=== PATIENT | female | born 1990 | race Caucasian/White ===

== ENCOUNTER → 2016-08-21 11:23 | Outpatient (CLI) | payer MEDICAID ==
[2015-10-11 11:31] VITALS: BMI 26.2
[~2016-08-21 11:23] MED LIST: DEMEROL50 MG PO; IBUPROFEN600 MG PO; PERCOCET 5-3251 TAB PO; PHENERGAN25 M1 PO
== END | disposition home or self-care (01) ==
LOC: D.LDO 11:23
DX: O26.899 Other specified pregnancy related conditions, unspecified trimester (principal)

== ENCOUNTER → 2016-08-28 09:10 | Outpatient (CLI) | payer MEDICAID ==
[2015-10-11 11:31] VITALS: BMI 26.2
== END | disposition home or self-care (01) ==
LOC: D.LDO 09:10
DX: O36.8990 Maternal care for other specified fetal problems, unspecified trimester, not applicable or unspecified (principal)

== ENCOUNTER → 2016-09-02 11:10 | Outpatient (CLI) | payer MEDICAID ==
[2015-10-11 11:31] VITALS: BMI 26.2
== END | disposition home or self-care (01) ==
LOC: D.LDO 11:10
DX: O26.893 Other specified pregnancy related conditions, third trimester (principal); Z3A.33 33 weeks gestation of pregnancy

== ENCOUNTER → 2016-09-05 08:47 | Outpatient (CLI) | payer MEDICAID ==
[2015-10-11 11:31] VITALS: BMI 26.2
== END | disposition home or self-care (01) ==
LOC: D.LDO 08:47
DX: O26.893 Other specified pregnancy related conditions, third trimester (principal); Z3A.34 34 weeks gestation of pregnancy

== ENCOUNTER → 2016-09-12 12:35 | Outpatient (CLI) | payer MEDICAID ==
[2015-10-11 11:31] VITALS: BMI 26.2
== END | disposition home or self-care (01) ==
LOC: D.LDO 12:35
DX: O26.893 Other specified pregnancy related conditions, third trimester (principal); Z3A.35 35 weeks gestation of pregnancy

== ENCOUNTER → 2016-09-19 10:44 | Outpatient (CLI) | payer MEDICAID ==
[2015-10-11 11:31] VITALS: BMI 26.2
== END | disposition home or self-care (01) ==
LOC: D.LDO 10:44
DX: O26.893 Other specified pregnancy related conditions, third trimester (principal); Z3A.36 36 weeks gestation of pregnancy

== ENCOUNTER → 2016-09-23 10:35 | Outpatient (CLI) | payer MEDICAID ==
[2015-10-11 11:31] VITALS: BMI 26.2
== END | disposition home or self-care (01) ==
LOC: D.LDO 10:35
DX: O26.893 Other specified pregnancy related conditions, third trimester (principal)

== ENCOUNTER → 2016-09-26 10:46 | Outpatient (CLI) | payer MEDICAID ==
[2015-10-11 11:31] VITALS: BMI 26.2
== END | disposition home or self-care (01) ==
LOC: D.LDO 10:46
DX: O26.893 Other specified pregnancy related conditions, third trimester (principal); Z3A.37 37 weeks gestation of pregnancy

== ENCOUNTER → 2016-09-30 09:10 | Outpatient (CLI) | payer MEDICAID ==
[2015-10-11 11:31] VITALS: BMI 26.2
== END | disposition home or self-care (01) ==
LOC: D.LDO 09:10
DX: O26.893 Other specified pregnancy related conditions, third trimester (principal); Z3A.37 37 weeks gestation of pregnancy

== ENCOUNTER → 2016-10-03 12:31 | Outpatient (CLI) | payer MEDICAID ==
[2015-10-11 11:31] VITALS: BMI 26.2
== END | disposition home or self-care (01) ==
LOC: D.LDO 12:31
DX: Z34.93 Encounter for supervision of normal pregnancy, unspecified, third trimester (principal); Z3A.38 38 weeks gestation of pregnancy

== ENCOUNTER → 2016-10-10 10:20 | Outpatient (CLI) | payer MEDICAID ==
[2015-10-11 11:31] VITALS: BMI 26.2
== END | disposition home or self-care (01) ==
LOC: D.LDO 10:20
DX: O26.893 Other specified pregnancy related conditions, third trimester (principal); Z3A.39 39 weeks gestation of pregnancy

== ENCOUNTER → 2016-10-14 14:41 | Outpatient (CLI) | payer MEDICAID ==
[2015-10-11 11:31] VITALS: BMI 26.2
== END | disposition home or self-care (01) ==
LOC: D.LDO 14:41
DX: O26.893 Other specified pregnancy related conditions, third trimester (principal); Z3A.39 39 weeks gestation of pregnancy

== ENCOUNTER → 2016-10-18 11:40 | Outpatient (CLI) | payer MEDICAID ==
[2015-10-11 11:31] VITALS: BMI 26.2
== END | disposition home or self-care (01) ==
LOC: D.LDO 11:40
DX: O26.93 Pregnancy related conditions, unspecified, third trimester (principal); Z3A.40 40 weeks gestation of pregnancy

== ENCOUNTER → 2016-10-20 12:45 | Outpatient (CLI) | payer MEDICAID ==
[2015-10-11 11:31] VITALS: BMI 26.2
== END | disposition home or self-care (01) ==
LOC: D.LDO 12:45
DX: O26.893 Other specified pregnancy related conditions, third trimester (principal); Z3A.40 40 weeks gestation of pregnancy

== ENCOUNTER 2016-10-21 04:39 | Inpatient (IN) | payer MEDICAID ==
[~2016-10-21] VITALS: Ht 160 cm; Wt 99.8 kg
[2016-10-21 05:11] VITALS: BP 122/74; Ht 160 cm; Wt 99.8 kg
[2016-10-21 06:06] LABS: APPEARANCE CLOUDY (CLEAR); COLOR YELLOW (YELLOW); LEUKOCYTE ESTERASE 1+ (NEGATIVE); NITRITE NEGATIVE (NEGATIVE); PROTEIN TRACE mg/dL (NEGATIVE)
[2016-10-21 06:07] LABS: BILIRUBIN NEGATIVE (NEGATIVE); GLUCOSE NEGATIVE (NEGATIVE); KETONE NEGATIVE (NEGATIVE); UROBILINOGEN NORMAL (NORMAL)
[2016-10-21 06:09] LABS: BACTERIA MANY /hpf (NONE SEEN); RED CELLS - URINE 0-5 /hpf (0-5)
[2016-10-21 06:20] LABS: HEMATOCRIT 34.1 % (36.0-48.0); HEMOGLOBIN 10.5 g/dL (12-16); MCH 24.4 pg (26.0-34.0); MCHC 30.8 g/dL (31.0-37.0); MCV 79.1 fL (80.0-100.0); RBC 4.31 10x6/uL (4.00-5.40); RDW 16.9 % (11.5-14.5); WBC 10.7 10x3/uL (4.8-10.8)
[2016-10-21 06:43] LABS: UDS - AMPHET NEGATIVE QUAL (NEGATIVE); UDS - BARB NEGATIVE QUAL (NEGATIVE); UDS - BENZO NEGATIVE QUAL (NEGATIVE); UDS - COCAINE NEGATIVE QUAL (NEGATIVE); UDS - METH NEGATIVE QUAL (NEGATIVE); UDS - OPIATE NEGATIVE QUAL (NEGATIVE); UDS - PCP NEGATIVE QUAL (NEGATIVE); UDS - THC NEGATIVE QUAL (NEGATIVE)
--- NOTE | 2016-10-21 23:10 | NUR ---
PT MOVED TO REGULAR BED FOR CONT. PP CARE. PT DENIES PAIN OR NEEDS AT THIS TIME. WILL CONT. TO MONITOR.
--- NOTE | 2016-10-22 00:23 | NUR ---
DERMAPLAST, EPIFOAM, TUCKS, AND MOTRIN 600MG X1 TAB PROVIDED FOR EH CARE AND PAIN RATED 4/10 IN ABD AND PERINEUM. PT UP TO VOID AT THIS TIME WITHOUT ASSISTANCE. PT DENIES FURTHER NEEDS. WILL CONT TO MONITOR. BED LOW, WHEELS LOCKED, CL IN REACH, SIDE RAILS UP X2.
--- NOTE | 2016-10-22 01:10 | NUR ---
PAIN REASSESSMENT COMPLETE. PT REPORTS PAIN 3/10 IN ABD AND PERINEUM. PT DENIES FURTHER NEEDS. FOB SLEEPING ON BEDSIDE COUCH.
--- NOTE | 2016-10-22 02:20 | NUR ---
INFANT TRANSPORTED TO ROOM VIA OPEN CRIB. BANDS VERIFIED PER PROTOCOL. LEFT IN OPEN CRIB AT BEDSIDE PER PT REQUEST. PT DENIES PAIN OR NEEDS AT THIS TIME.
--- NOTE | 2016-10-22 04:55 | NUR ---
RN CALLED TO PT BS. PT REQUESTS ADDITIONAL GOWN AND PANTIES, PROVIDED TO PT AT THIS TIME. PT DENIES ANY FURTHER NEEDS AT THIS TIME. BED IN LOW POSITION, SIDE RAILS UP TIMES 2, CALL LIGHT AND PHONE IN REACH. SO REMAINS AT PT BS FOR SUPPORT AND ASSISTANCE. REMAINS AT PT BS FOR COUPLET CARE. WILL CONT TO MONITOR PT STATUS.
[2016-10-22 07:27] LABS: RAPID PLASMA REAGIN Non Reactive (Non Reactive)
[2016-10-22 07:30] VITALS: BP 118/72
--- NOTE | 2016-10-22 07:30 | NUR ---
Pt is awake, sitting up in bed holding infant, denies pain or discomfort at this time. fundus firm at u/u with light bleeding noted, Pt denies any clots with voids. Saline lock to right forearm that is patent, pt questions when this can be removed and states understanding that labs will be done. denies any questions or concerns at this time. Side rails up x 2 with call light in reach.
--- NOTE | 2016-10-22 09:31 | NUR ---
Motrin given as charted on emar for complaint of cramping. rates at 3/10. Infant in crib at bedside. Pt denies any other needs at this time.
[2016-10-22 10:33] LABS: HEMATOCRIT 28.8 % (36.0-48.0); HEMOGLOBIN 8.9 g/dL (12-16); MCH 24.7 pg (26.0-34.0); MCHC 30.9 g/dL (31.0-37.0); MCV 79.8 fL (80.0-100.0); RBC 3.61 10x6/uL (4.00-5.40); RDW 17.2 % (11.5-14.5)
--- NOTE | 2016-10-22 10:39 | NUR ---
Shaneka Schmidt [birth year] S: Patient states she breastfeed baby yesterday for a few minutes, last night, she was so tired, she just gave baby a bottle. States she is a little nervous about , really don't know much about it. Baby has been spitting up formula a lot after every feeding, so she hasn't tried nursing him. States a nurse came in earlier and gave her more clothes for baby. O: Patient sitting up in bed holding , family in room. Congratulated on delivery, takes time and patience in the beginning. Explained breastmilk composition, your colostrum is so beneficial to baby because it contains antibodies that help build baby immune system. Every day your colostrum will increase in volume to meet needs. Breast milk is easier for infant to digest, so infant tends to eat more often. It's normal for a breastfed baby to eat every 1 to 2 hours. Explained and provided handout of feeding cues. Breastfed babies should feed on demand, when showing feeding cues. The more baby is placed to the breast; this will help with establishing your milk supply. If baby is given more formula verses breastmilk, your body will get the indicating that the breastmilk isn't needed, and will cut back in producing. Placing baby to the breast is very important when trying to establish your supply. When starting a feeding, make sure baby is turned tummy to tummy, nose opposite of nipple, gently support infant head, and allow to self-latch. If you need help with latching, please let us know, so we can help you. shouldn't hurt, sensitivity is normal, pain isn't. Baby should have some of the darker area around your nipple in his mouth when nursing, not just nipple only. When you haven't breastfed before, it can seem scary, but it's normal to feel overwhelmed at first, all parents feel this way at some point. Encouraged to try latching baby to the breast for next feeding, ask for help as needed. Provided handouts and explained on feeding cues, skin to skin, positions for , starting a feeding, engorgement, and hand expression. Asked if any questions or concerns, patient declined, states she will try nursing at next feeding. A: Patient states she is nervous about , first baby. P: Latch infant to the breast for feedings. Beatriz Wong, CLC
[2016-10-22 10:49] LABS: WBC 14.5 10x3/uL (4.8-10.8)
--- NOTE | 2016-10-22 11:15 | NUR ---
Saline lock removed with cath intact. Pt up to shower, bed linens changed at this time. Pt mother remains in room with in crib.
--- NOTE | 2016-10-22 12:45 | NUR ---
large ice water provided per pt request, denies pain or discomfort and has no other needs at this time.
--- NOTE | 2016-10-22 15:20 | NUR ---
PT dress in her clothing, sitting up in bed visiting with friends/family. Infant in room. Large cup of ice with sprite provided per her request. Rates pain at 0/10.
--- NOTE | 2016-10-22 16:45 | NUR ---
Denies pain or discomfort at this time. Transferred to room 1274, orient to room without any questions. infant remains in crib at bedside. Pt denies any needs
--- NOTE | 2016-10-22 17:45 | NUR ---
Denies pain or discomfort, no needs voiced. Infant in crib at bedside.
--- NOTE | 2016-10-22 19:12 | NUR ---
REPORT REC'D FROM Meg WEEKS RN. RN RESUMING CARE. RN TO ROOM, PT TALKING ON PHONE AT THIS TIME. WILL CHECK BACK IN ON PT. BED IN LOW POSITION WITH UPPER SIDE RAILS RAISED X2. CL AND PHONE WITHIN REACH.
--- NOTE | 2016-10-22 19:42 | NUR ---
PT SITTING ON EDGE OF BED CONVERSING WITH VISITORS. VISITOR HOLDING INFANT AT THIS TIME. DENIES PAIN AND ADDITIONAL NEEDS. REQUESTS THAT SHIFT ASSESSMENT BE DONE WHEN VISITOR LEAVE. INSTRUCTED TO NOTIFY RN WHEN VISTORS LEAVE, VERBALIZED UNDERSTANDING. BED IN LOW POSITION WITH UPPER SIDE RAILS RAISED X2. CL AND PHONE WITHIN REACH. WILL CONT TO MONITOR AND ASSIST PRN.
--- NOTE | 2016-10-22 20:38 | NUR ---
ROUNDS MADE. PT PREPARING TO BOTTLE FEED . DENIES PAIN AND NEEDS AT THIS TIME. INSTRUCTED TO CALL RN WHEN SHE FINISHES WITH BOTTLE FEED, VERBALIZED UNDERSTANDING. BED IN LOW POSITION WITH UPPER SIDE RAILS RAISED X2. CL AND PHONE WITHIN REACH. WILL CONT TO MONITOR AND ASSIST PRN.
[2016-10-22 21:35] VITALS: BP 121/75
--- NOTE | 2016-10-22 21:35 | NUR ---
RN TO ROOM FOR ROUNDS. PT HOLDING INFANT STATES SHE FORGOT TO CALL RN WHEN SHE COMPLETED FEED. SHIFT ASSESSMENT COMPLETED. VSS. FUNDUS FIRM, U2 WITH SMALL AMT RUBRA LOCHIA TO PERIPAD, NO CLOTS PRSENT. PAIN 4/10, REQUESTS MOTRIN (GIVEN SEE EMAR), MILD ABD CRAMPING. REFUSES MILK OF MAG, STATES THAT SHE HAD BM TODAY AND IS PASSING FLATUS. MILD BILATERAL LABIA SWELLING, PT REPORTS THAT IT IS MUCH IMPROVED, SHE IS VOIDING WITHOUT DIFFICULTY AND REPORTS THAT SHE IS TRYING TO VOID Q 2HRS AND USING TUX AND EPIFOAM. EDUCATED ON LOCHIA, S/S OF INFECTION TO REPORT, AND DISCUSSED D/C PLANS FOR THE MORNING, VERBALIZED UNDERSTANDING. LL SODA GIVEN. DENIES ADDITIONAL NEEDS. BED IN LOW POSITION WITH UPPER SIDE RAILS RAISED X2. CL AND PHONE WITHIN REACH. WILL CONT TO MONITOR AND ASSIST PRN.
--- NOTE | 2016-10-22 22:37 | NUR ---
ROUNDS MADE. PT BONDING WITH . DENIES NEEDS. DENIES PAIN AT THIS TIME. STATES THAT SPOUSE WILL BE COMING BACK TONIGHT, BLANKETS AND PILLOW PROVIDED FOR SPOUSE. DENIES ADDITIONAL NEEDS. BED REMAINS IN LOW POSITION WITH UPPER SIDE RAILS RAISED X2. CL AND PHONE WITHIN REACH. WILL CONT TO MONITOR AND ASSIST PRN.
--- NOTE | 2016-10-23 00:10 | NUR ---
BEDSIDE ROUNDS MADE. PT IN SEMI FOWLWERS POSITION LAYING ON RIGHT SIDE. RESTING WITH EYES CLOSED. RESPIRATIONS REGULAR AND UNLABORED. NO S/S OF DISTRESS NOTES. BED IN LOW POSITION WITH UPPER SIDE RAILS RAISED X2. CL AND PHONE WITHIN REACH. WILL CONT TO MONITOR AND ASSIST PRN. S/O AT BEDSIDE.
--- NOTE | 2016-10-23 02:09 | NUR ---
BEDSIDE ROUNDS MADE. PT REMAINS IN SEMI-FOWLERS POSITION ON BACK RESTING WITH EYES CLOSED. RESPIRATIONS REGULAR AND UNLABORED. NO S/S OF DISTRESS NOTED. BED IN LOW POSITION WITH UPPER SIDE RAILS RAISED X2. CL AND PHONE WITHIN REACH. WILL CONT TO MONITOR AND ASSIST PRN.
--- NOTE | 2016-10-23 04:23 | NUR ---
BEDSIDE ROUNDS MADE. PT RESTING WITH EYES CLOSED IN SEMIFOWLERS ON RIGHT SIDE. RESPIRATIONS REGULAR AND UNLABORED. NO S/S OF DISTRESS NOTED. INFANT IN CRIB AT BEDSIDE RESTING QUIETLY, RESPIRATIONS REGULAR AND UNLABORED, NO S/S OF DISTRESS NOTED. BED IN LOW POSITION WITH UPPER SIDE RAILS RAISED X2. CL AND PHONE WITHIN PT REACH. WILL CONT TO MONITOR AND ASSIST PRN.
--- NOTE | 2016-10-23 06:30 | NUR ---
ROUNDS MADE. PT IN HIGH FOWLERS POSITION HOLDING AND BONDING WITH INFANT. DENIES PAIN. ICE WATER GIVEN PER REQUEST. BED IN LOW POSITION WITH UPPER SIDE RAILS RAISED X2. CL AND PHONE WITHIN REACH. WILL CONT TO MONITOR AND ASSIST PRN.
--- NOTE | 2016-10-23 07:18 | NUR ---
Pt is awake, dressed and sitting in chair at bedside feeding . Denies pain or discomfort at this time. Denies any clots with voids and states that the perineal pain she had yesterday is gone today. AM assessment completed as charted on flowsheet. Provided with socorro pads/panties, placed in bathroom. Call light in reach.
--- NOTE | 2016-10-23 07:50 | NUR ---
infant taken by crib with nursery nurse to N.
--- NOTE | 2016-10-23 09:30 | NUR ---
Denies any concerns at this time, rates pain at 0/10. Large cup of ice with lemon [employer] soda per reqcasie.
--- NOTE | 2016-10-23 11:01 | NUR ---
Pt denies needs, rates pain at 0/10 at this time. in room
--- NOTE | 2016-10-23 13:00 | NUR ---
Called to room, pt questions when d/c will occur due to spouse needing to leave for work. Explain that briseida was just now making rounds and would be another hour maybe, spouse states he will have to come back afterwards to pick her up. He does take the majority of personnel belonngings at this time.
--- NOTE | 2016-10-23 13:30 | NUR ---
large cup of ice with coke provided per request. Deneis pain or discomfort at this time. in crib at bedside.
--- NOTE | 2016-10-23 18:10 | NUR ---
MMR and tdap given as charted on emar.
--- NOTE | 2016-10-23 18:15 | NUR ---
Verbal and written discharge orders given with written script for motrin 600mg. Pt denies any questions or concerns. Taken out to car by wheelchair home with spouse.
== END 2016-10-23 18:30 | disposition home or self-care (01) | DRG 775 ==
LOC: D.LD 04:39
PROVIDERS: ADMIT Obstetrics & Gynecology
PROC: 10E0XZZ Delivery of Products of Conception, External Approach (ICD-10-PCS; principal; 2016-10-21)
PROC: 0HQ9XZZ Repair Perineum Skin, External Approach (ICD-10-PCS; 2016-10-21)
PROC: 3E033VJ Introduction of Other Hormone into Peripheral Vein, Percutaneous Approach (ICD-10-PCS; 2016-10-21)
DX: O48.0 Post-term pregnancy (principal); O70.0 First degree perineal laceration during delivery; O99.214 Obesity complicating childbirth; E66.9 Obesity, unspecified; Z68.39 Body mass index [BMI] 39.0-39.9, adult; Z3A.41 41 weeks gestation of pregnancy; Z37.0 Single live birth

== ENCOUNTER 2019-04-09 14:52 | Emergency (ER) | payer MEDICAID ==
[~2019-04-09] VITALS: Ht 160 cm; Wt 68.2 kg
[2019-04-09 15:22] VITALS: Ht 160 cm; Wt 68.2 kg
[2019-04-09 15:50] LABS: BASOPHILS 0.1 % (0-2); EOSINOPHILS 1.4 % (0-7); HEMATOCRIT 40.2 % (36.0-48.0); HEMOGLOBIN 13.4 g/dL (12-16); IMMATURE GRANULOCYTES 0.2 % (0-5); LYMPHOCYTES 26.4 % (15-50); MCH 29.3 pg (26.0-34.0); MCHC 33.3 g/dL (31.0-37.0); MCV 87.8 fL (80.0-100.0); MEAN PLATELET VOLUME 9.9 fL (7.4-10.4); MONOCYTES 7.8 % (2-11); NEUTROPHILS 64.1 % (40-80); RBC 4.58 10x6/uL (4.00-5.40); RDW 13.2 % (11.5-14.5); WBC 8.1 10x3/uL (4.8-10.8)
[2019-04-09 15:50] LABS: APPEARANCE CLEAR (CLEAR); COLOR YELLOW (YELLOW); SPECIFIC GRAVITY 1.025 (1.005-1.020)
[2019-04-09 15:51] LABS: BILIRUBIN NEGATIVE (NEGATIVE); GLUCOSE NEGATIVE (NEGATIVE); KETONE NEGATIVE (NEGATIVE); NITRITE NEGATIVE (NEGATIVE); PROTEIN NEGATIVE (NEGATIVE); UROBILINOGEN NORMAL (NORMAL)
[2019-04-09 15:54] LABS: PLATELET COUNT 255 10x3/uL (130-400)
[2019-04-09 15:54] LABS: BACTERIA MODERATE /hpf (NEGATIVE); RED CELLS - URINE 0-5 /hpf (0-5); WHITE CELLS - URINE 0-5 /hpf (NEGATIVE)
[2019-04-09 15:58] LABS: CALC OSMOLALITY 276 mosm/kg (275-300); CALCIUM 8.7 mg/dL (8.5-10.1); CARBON DIOXIDE 24.5 mmol/L (21.0-32.0); CHLORIDE - SERUM 104 mmol/L (98-107); CREATININE - SERUM 0.7 mg/dL (0.6-1.3); GLUCOSE 94 mg/dL (74-106); SODIUM 139 mmol/L (136-145); UREA NITROGEN 11 mg/dL (7-18); eGFR NON AFRICAN AMERICAN > 90 mL/min (90-120)
[2019-04-09 16:25] LABS: ALBUMIN 3.8 g/dL (3.4-5.0); ALKALINE PHOSPHATASE 60 U/L (46-116); ALT (SGPT) 17 U/L (10-68); BILIRUBIN - TOTAL 0.23 mg/dL (0.2-1.3); HCG - QUANTITATIVE (MATERNAL) 4066 mIU/mL; PROTEIN - SERUM 7.3 g/dL (6.4-8.2)
[2019-04-09 17:56] VITALS: BP 122/70
== END 2019-04-09 17:57 | disposition home or self-care (01) ==
LOC: D.ER 14:52
PROVIDERS: Family Medicine
DX: O03.9 Complete or unspecified spontaneous abortion without complication (principal)

== ENCOUNTER 2020-01-08 13:45 | Emergency (ER) | payer MEDICAID ==
[~2020-01-08] VITALS: Ht 160 cm; Wt 70.5 kg
[2020-01-08 14:03] VITALS: Ht 160 cm; Wt 70.5 kg
[2020-01-08] MEDS ORDERED: ERYTHROMYCIN OPT1 GM LEFT EYE (17:35)
[2020-01-08 17:56] VITALS: BP 111/74
== END 2020-01-08 17:56 | disposition home or self-care (01) ==
LOC: D.ER 13:45
DX: S05.02XA Injury of conjunctiva and corneal abrasion without foreign body, left eye, initial encounter (principal); X58.XXXA Exposure to other specified factors, initial encounter